=== PATIENT | female | born 1985 | race Caucasian/White ===

== ENCOUNTER 2019-09-11 13:05 | Inpatient (IN) | payer OTHER ==
[~2019-09-11] VITALS: Ht 160 cm; Wt 68.0 kg
[~2019-09-11 13:05] MED LIST: IBUP-2070 PO; PREN-114 PO
[2019-09-11] MEDS ORDERED: RINGERS SOLUTION,LACTATED 1,000 ML IV ONE ×2 (14:15→14:30)
[2019-09-11 14:25] VITALS: BP 107/56
[2019-09-11] MEDS ORDERED: OS500 PO (14:29)
[2019-09-11] MEDS ORDERED: PREN-134 PO (14:34)
[2019-09-11] MEDS ORDERED: RINGERS SOLUTION,LACTATED 1,000 ML IV PRN (17:44)
[2019-09-11] MEDS ORDERED: OXYTOCIN 30 UNITS/LACT RINGERS 500 ML IV ONE (17:44)
[2019-09-11] MEDS ORDERED: CITRIC ACID/SODIUM CITRATE 30 ML SOLUTION UDCUP PO PRN (17:45)
[2019-09-11] MEDS ORDERED: METHYLERGONOVINE MALEATE 0.2 MG/ML VIAL IM PRN (17:45)
[2019-09-11] MEDS ORDERED: FentaNYL CITRATE-PF 100 MCG/2 ML VIAL IVP PRN (17:45)
[2019-09-11] MEDS ORDERED: METOCLOPRAMIDE HCL 5 MG/ML 2 ML VIAL IVP PRN (17:45)
[2019-09-11] MEDS ORDERED: INFLUENZA VIRUS VACCINE QVS 2019-20 (3YR+)/PF 60 MCG/0.5 ML SYRINGE IM ONE (18:00)
[2019-09-11 18:12] LABS: BASOPHILS % (AUTO) 0.4 % (0.0-2.0); EOSINOPHILS % (AUTO) 0.6 % (1.0-6.0); HEMATOCRIT 34.8 % (36-46); LYMPHOCYTES # (AUTO) 1.8 K/uL (1.0-4.8); LYMPHOCYTES % (AUTO) 16.3 % (22.0-44.0); MEAN CORPUSCULAR HEMOGLOBIN 33.8 pg (26.0-34.0); MEAN CORPUSCULAR HGB CONC 34.6 G/dL (31.0-37.0); MEAN CORPUSCULAR VOLUME 98 fL (80-100); MONOCYTES # (AUTO) 0.6 K/uL (0.1-1.0); MONOCYTES % (AUTO) 5.4 % (2.0-9.0); NEUTROPHILS # (AUTO) 8.7 K/uL (1.8-7.7); NEUTROPHILS % (AUTO) 77.3 % (40.0-70.0); PLATELET COUNT (AUTO)-OB 226 K/uL (150-450); RED BLOOD CELL COUNT(AUTO) 3.56 MIL/uL (4.00-5.20); RED CELL DISTRIBUTION WIDTH 13.7 % (11.5-14.5)
[2019-09-11] MEDS: CALCIUM CARBONATE 500 MG CHEWABLE TABLET CHEW PRN ×2 (18:22→22:05)
[2019-09-11] MEDS ORDERED: OXYGEN THERAPY IH SCH (20:00)
[2019-09-11] MEDS ORDERED: ROPIVACAINE HCL/PF 0.2% 100 ML ED ONE (21:05)
[2019-09-11] MEDS ORDERED: ROPIVACAINE HCL/PF 0.2% 100 ML ED PRN (22:13)
[2019-09-11] MEDS ORDERED: NALBUPHINE HCL 10 MG/ML VIAL IVP PRN (22:15)
[2019-09-11] MEDS ORDERED: ONDANSETRON HCL 4 MG/2 ML VIAL IVP PRN (22:15)
[2019-09-11] MEDS ORDERED: DiphenhydrAMINE HCL 50 MG/ML VIAL IVP PRN (22:15)
[2019-09-11] MEDS ORDERED: RINGERS SOLUTION,LACTATED 1,000 ML IV SCH (23:00)
[2019-09-12] MEDS ORDERED: OXYTOCIN 30 UNITS/LACT RINGERS 500 ML IV ONE (01:36)
[2019-09-12] MEDS ORDERED: LANOLIN 7 GM OINTMENT TP PRN (01:45)
[2019-09-12] MEDS ORDERED: OxyCODONE HCL/ACETAMINOPHEN 5-325 MG TABLET PO PRN ×2 (01:45)
[2019-09-12] MEDS ORDERED: BENZOCAINE 20%/MENTHOL 56 GM SPRAY CANISTER TP PRN (01:45)
[2019-09-12] MEDS ORDERED: MAGNESIUM HYDROXIDE SUSPENSION 30 ML UDCUP PO PRN (01:45)
[2019-09-12] MEDS ORDERED: LIDOCAINE/PF 1% 30 ML VIAL INJ PRN (01:45)
[2019-09-12] MEDS ORDERED: GLYCERIN/WITCH HAZEL LEAF 40 PADS JAR TP PRN (01:45)
[2019-09-12] MEDS: IBUPROFEN 800 MG TABLET PO PRN ×3 (02:23→18:52)
[2019-09-12] MEDS: CALCIUM CARBONATE 500 MG CHEWABLE TABLET CHEW PRN (22:57)
[2019-09-13] MEDS: IBUPROFEN 800 MG TABLET PO PRN ×2 (01:28→08:36)
[2019-09-13 06:11] LABS: BASOPHILS % (AUTO) 0.4 % (0.0-2.0); EOSINOPHILS % (AUTO) 1.2 % (1.0-6.0); HEMATOCRIT 30.1 % (36-46); HEMOGLOBIN 10.8 g/dL (12.0-16.0); LYMPHOCYTES # (AUTO) 2.3 K/uL (1.0-4.8); LYMPHOCYTES % (AUTO) 21.8 % (22.0-44.0); MEAN CORPUSCULAR HEMOGLOBIN 35.4 pg (26.0-34.0); MEAN CORPUSCULAR HGB CONC 35.9 G/dL (31.0-37.0); MEAN CORPUSCULAR VOLUME 99 fL (80-100); MONOCYTES # (AUTO) 0.8 K/uL (0.1-1.0); MONOCYTES % (AUTO) 7.4 % (2.0-9.0); NEUTROPHILS # (AUTO) 7.3 K/uL (1.8-7.7); NEUTROPHILS % (AUTO) 69.2 % (40.0-70.0); PLATELET COUNT (AUTO)-OB 185 K/uL (150-450); RED BLOOD CELL COUNT(AUTO) 3.05 MIL/uL (4.00-5.20); RED CELL DISTRIBUTION WIDTH 13.8 % (11.5-14.5)
[2019-09-13] MEDS ORDERED: DOCU-275 PO (09:07)
[2019-09-13] MEDS ORDERED: IBUP-2071 PO (09:07)
[2019-09-13] MEDS ORDERED: FERR-89 PO (09:07)
== END 2019-09-13 11:30 | disposition home or self-care (01) | DRG 807 ==
LOC: OBSVTOIN 13:05 → 4S 13:05
PROVIDERS: ADMIT Obstetrics & Gynecology; ATTEND Obstetrics & Gynecology
PROC: 3E02340 Introduction of Influenza Vaccine into Muscle, Percutaneous Approach (ICD-10-PCS; 2019-09-11)
PROC: 10E0XZZ Delivery of Products of Conception, External Approach (ICD-10-PCS; principal; 2019-09-12)
PROC: 10907ZC Drainage of Amniotic Fluid, Therapeutic from Products of Conception, Via Natural or Artificial Opening (ICD-10-PCS; 2019-09-12)
PROC: 3E0R3BZ Introduction of Anesthetic Agent into Spinal Canal, Percutaneous Approach (ICD-10-PCS; 2019-09-12)
PROC: 00HU33Z Insertion of Infusion Device into Spinal Canal, Percutaneous Approach (ICD-10-PCS; 2019-09-12)
DX: O63.9 Long labor, unspecified (principal); Z37.0 Single live birth; Z3A.39 39 weeks gestation of pregnancy; Z23 Encounter for immunization
CPT/HCPCS: 86592; 86762; 86850; 86900; 86901; 87340; 90686; J2590; J2795; J3010; J7120